=== PATIENT | male | born 1950 | race Caucasian/White ===

== ENCOUNTER 2020-12-14 11:25 | Outpatient (REF) | payer MEDICARE, SELFPAY ==
[2020-12-14 14:35] LABS: Blood Urea Nitrogen 16 mg/dL (9-16); Estimated Glomerular Filt Rate > 60
== END 2020-12-14 11:26 | disposition home or self-care (01) ==
LOC: HO.10HDL 11:25
PROVIDERS: Visit Provider Otolaryngology
DX: Z01.812 Encounter for preprocedural laboratory examination (principal); D33.3 Benign neoplasm of cranial nerves
CPT/HCPCS: 36415; 82565; 84520

== ENCOUNTER 2020-12-19 10:58 | Outpatient (REF) | payer MEDICARE, SELFPAY ==
--- NOTE | ~2020-12-19 | MR_ITS ---
MR BRAIN WITHOUT AND WITH IV CONTRAST CLINICAL INFORMATION: Concern for right-sided acoustic neuroma. COMPARISON: None available. TECHNIQUE: Multiplanar, multisequence MRI of the brain was obtained before and after the intravenous administration of 10 mL Gadavist. FINDINGS: The inner ear structures including the cochlea, vestibules, and semicircular canals exhibit preserved CSF signal intensity with no pathologic enhancement. The vestibular aqueducts are not enlarged. Cranial nerves VII and VIII complexes are normal in morphology. No enhancing CP angle/retrocochlear lesion. There is no pathologic intracranial enhancement. There is mild chronic microangiopathy. No acute infarct on diffusion-weighted imaging. No intracranial hemorrhage on the gradient series. No hydrocephalus, extra-axial surface collection, or herniation. The midline intracranial structures are normal. Cerebellar tonsils are normally positioned. Craniocervical junction is normal. Osseous marrow signal intensity remains homogeneous. No significant soft tissue abnormality is appreciated. Mucosal thickening throughout the paranasal sinuses. MR/MR head/brain wo/w con IMPRESSION: - No retrocochlear pathology. - There is mild chronic microangiopathy. - Mucosal thickening throughout the paranasal sinuses.
== END 2020-12-19 10:59 | disposition home or self-care (01) ==
LOC: HO.MRI 10:58
PROVIDERS: Visit Provider Otolaryngology
DX: H93.11 Tinnitus, right ear (principal); D33.3 Benign neoplasm of cranial nerves
CPT/HCPCS: 70553; A9585

== ENCOUNTER 2025-10-26 11:53 | Outpatient (AMB) | payer MEDICARE, SELFPAY ==
--- NOTE | 2025-10-26 11:55 | A.OFFVIS_ITS ---
Intake Visit Reasons: 6M PN Allergies amoxicillin (From Augmentin) Allergy (Unknown, Verified 10/26/25 12:00) Unknown clavulanic acid (From Augmentin) Allergy (Unknown, Verified 10/26/25 12:00) Unknown sulindac Allergy (Unknown, Verified 10/26/25 12:00) Unknown Medication List - Last Reconciled 10/26/25 by Janel Alberto CNP amlodipine 2.5 mg PO DAILY aspirin 81 mg PO DAILY cetirizine 10 mg PO DAILY clonazepam (Klonopin) 0.5 mg PO BEDTIME 90 days HPI Comments Details: He was doing okay. Some occasional numbness and tingling in feet and legs. Occasionally gets some pain in feet, but not often and is not significantly bothersome. No recent dizziness. No falls. 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 Not as active as before, but still trying to walk some. Sleep was okay. Clonazepam helps. Tried to stop clonazepam, but had increased tinnitus and restarted medication. Tinnitus is better with medication. Rare dizzy spells. Occasional shooting pains in R foot. No falls. Had L meniscus repair. 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 Sudden left sided numbness with right thalamic infarct on 02/04/2023. Hx of ringing in right ear and headaches. Had loop monitor and was told needed pacemaker which he declined. Episodes of lightheadedness and presyncope that started in 2018 with one episode of going to the floor without loss of consciousness. Occasional anxiety. Neuropathy is good, stopped gabapentin around 2014. Hx of burning and pain in legs since 2003 or earlier, diagnosed as having mild peripheral neuropathy of unknown etiology, workup for treatable neuropathy unremarkable. Hx of cervical discectomy and fusion in 1966, chronic low back pain. Nerve conduction study on 03/12/2011 showed mild bilateral carpal tunnel syndrome and mild prolonged distal latencies in the lower extremities suggestive of mild neuropathy. [facility] Medical History (Updated 10/26/25 @ 12:00 by Janel Alberto CNP) Low back pain RIA on CPAP BPH (benign prostatic hyperplasia) Hypertension Carpal tunnel syndrome Peripheral neuropathy Tinnitus Stroke Review of Systems Const Denies chills, Denies daytime sleepiness, Denies difficulty sleeping, Denies fatigue, Denies fever(s), Denies frequent falls, Denies headache(s), Denies increased appetite, Denies poor appetite, Denies snoring, Denies weakness, Denies weight gain and Denies weight loss Eyes Denies loss of vision ENT Denies vertigo, Reports dizziness, Denies headache(s), Denies neck pain and Reports tinnitus Card Denies chest pain at rest, Denies chest pain with activity, Denies syncope, Denies leg edema, Denies palpitations, Denies dyspnea and Denies dyspnea on exertion Resp Denies cough, Denies dyspnea, Denies dyspnea on exertion and Denies snoring GI Denies abdominal pain, Denies constipation, Denies heartburn, Denies diarrhea and Denies nausea Denies urinary frequency, Denies urinary incontinence and Denies urinary urgency Musc Denies abnormal gait, Denies back pain, Denies myalgias, Denies arthralgias, Denies neck pain, Reports numbness and Reports tingling Neuro Denies abnormal gait, Denies vertigo, Reports dizziness, Denies syncope, Denies frequent falls, Denies headache(s), Denies lack of coordination, Denies loss of vision, Reports memory loss, Reports numbness, Denies Other visual disturbances, Denies restless legs, Denies seizure-like activity, Reports tingling, Denies paresthesias, Denies tremor(s) and Denies weakness Psych Reports anxiety, Denies depression, Denies auditory hallucinations, Reports memory loss and Denies visual hallucinations Endo Denies fatigue and Denies palpitations Physical Exam Const Other: General Appearance:? normal, in no acute distress. Heart:? S1, S2 normal, no murmurs. Lungs:? clear anteriorly and posteriorly. Musculoskeletal:? normal. Extremities:? no edema. Psych:? alert, oriented, cognitive function intact, cooperative with exam. Neuro Other: Abnormal Neurological Findings:?none.? Mental Status: alert and oriented X 3. Normal attention, orientation, memory, and affect. Cranial Nerves: Pupils are equal, round, and reactive to light. External ocular muscles are intact. Visual huizar are full, no ptosis. Face is symmetrical, no facial weakness or droop. Facial sensations are normal. Tongue protrudes in midline. Palate elevates symmetrically. Shoulder shrugging is normal Motor Examination: Normal muscle tone, bulk and strength. No atrophy or fasciculations. No drift of the extended upper extremities. DTR 2+. Plantars are flexor. Sensory Exam: Normal light touch, temperature, pinprick, vibration, and joint- position sensations. Rhomberg sign is absent. Coordination: No ataxia. No titubation. Gait Exam: Within normal limits. Cerebellar Signs: [id number] is okay. Extrapyramidal System: No tremor, rigidity with normal facial expressions. No b radykinesia. No bradyphrenia. Normal arm swing and posture. No propulsion or retropulsion. Speech: Normal. Results Reviewed Results Reviewed: 12/19/20 MRI IMPRESSION: - No retrocochlear pathology.- There is mild chronic microangiopathy. - Mucosal thickening throughout the paranasal sinuses. Assessment & Plan Assessment & Plan (1) History of stroke: Code(s): Z86.73 - Personal history of transient ischemic attack (TIA), and cerebral infarction without residual deficits Category: Medical Plan: Continue low dose aspirin, control blood pressure. (2) Dizziness: Code(s): R42 - Dizziness and giddiness Category: Medical Plan: Continue clonazepam 0.5mg 1 tablet at bedtime #30 for 30 days (3) Peripheral neuropathy: Code(s): G62.9 - Polyneuropathy, unspecified Category: Medical Qualifiers: Peripheral neuropathy type: polyneuropathy, unspecified Qualified Code(s): G62.9 - Polyneuropathy, unspecified Plan: No significant pain at this time and medication was not needed - he has tried gabapentin in the past. Stay physically active. Follow up in 6 months or sooner as needed. Coding Level of Care Code Est Pt Level 4 (47346) Diagnoses History of stroke Z86.73 Dizziness R42 Peripheral polyneuropathy G62.9 Peripheral neuropathy type: polyneuropathy, unspecified
--- OUTSIDE RECORDS SUMMARY | 2025-10-26 15:48 | XMS_ITS | Encounter Summary ---
Author Organization [facility] Address [address] [place] [address] Care Team Providers Care Magazine Repairer Name Role Phone Bradly Dumont MD Primary Care Provider [phone] Encounter Details Date Type Department Care Team (Late st Contact Info) Description 10/24/2025 Results Follow-Up Adult Medicine [address] [phone] Lindsey Shepard PA [address] [place] [address] Social History Tobacco Use Types Packs/Day Years Used Date Smoking Tobacco: Former Cigarettes 0 Q uit: 10/10/1994 Smokeless Tobacco: Never Alcohol Use Standard Drinks/Week Comments No 0 (1 standard drink = 0.6 oz pur e alcohol) Housing Instability Answer Date Recorde d Are you worried that in the next 2 months you may not have stable housing? No 05/15/2025 Food Access & Nutrition Answer Date Rec orded Do you have access to a vari ety of food including fruits and vegetables? Yes 05/15/2025 Access to Healthcare Answer Date Record ed Within the last 3 months, ho w many times did you visit the emergency department for your medical care? 0 05/15/2025 Health Literacy Answer Date Recorded How often do you need to hav e someone help you when you read instructions, pamphlets, or other written material from your doctor or pharmacy? Never 05/15/2025 Caregiver: How often do you need to have someone help you when you read instructions, pamphlets, or other written material from your doctor or pharmacy? Not on file 05/15/2025 Financial Risk Answer Date Recorded How hard is it for you to pa y for the very basics like food, housing, medical care, and air conditioning / heating? Not very hard 05/15/2025 Transportation Answer Date Recorded Has the lack of transportati on kept you from meetings, work, or from getting things needed for daily living? No 05/15/2025 Has the lack of transportati on kept you from medical appointments or from getting medications? Not on file 05/15/2025 Social Isolation Answer Date Recorded How often do you feel lonely or isolated from those around you? Sometimes 05/15/2025 Food Risk Answer Date Recorded Within the past 12 months we worried whether our food would run out before we got money to buy more. Never true 05/15/2025 Within the past 12 months th e food we bought just didn't last and we didn't have money to get more. Never true 05/15/2025 Dependent Care Answer Date Recorded Do you need help finding or paying for care for your loved ones. For example, child care cook or elderly care for an older adult? No 05/15/2025 Education Answer Date Recorded Do you think completing more education or training, like finishing a GED, going to college, or learning a trade, would be helpful for you? No 05/15/2025 Employment and Income Answer Date Recor ded During the last four weeks, have you been actively looking for work? No 05/15/2025 Living Situation Answer Date Recorded What is your living situation? Unrecognized valu e 05/15/2025 Sex and Gender Information Value Date Recorded Sex Assigned at Not on file Legal Sex Male 8:11 AM EST Gender Identity Not on file Sexual Orientation Not on file documented as of this encounter Plan of Treatment Upcoming Encounters Date Type Department Care Team (Late st Contact Info) Description 10/27/2025 3:00 PM EST Office Visit Orthopedic Surgery - [place] [address] [phone] Tony Madera, DPM [address] [phone] 04/20/2026 11:00 AM EDT Office Visit Adult Medicine [address] [phone] Bradly Dumont MD [address] [place] [address] documented as of this encounter Visit Diagnoses Not on filedocumented in this encounter Additional Health Concerns Assessment Noted Time PHQ-9 Depression Total Score: 0 10/19/20 25 8:30 AM EST documented as of this encounter Care Teams Magazine Repairer Relationship Specialty Start Date End Date Bradly Dumont MD [address] [place] [address] PCP - General Internal Medicine 09/20/24 documented as of this encounter
--- OUTSIDE RECORDS SUMMARY | 2025-10-26 15:48 | XMS_ITS ---
Author Name [facility] Organization Unknown Care Team Organization Name Specialty Phone Email Start Date End Da te [facility]CO 06/29/2025 [facility] KOKO COLINDRES Primary Care 10/22/2023 [facility] Fidelia Moreno Primary Care 07/17/202306/28 [facility] Kelli Ahumada Primary Care 04/18/202306/10
--- OUTSIDE RECORDS SUMMARY | 2025-10-26 15:48 | XMS_ITS | Clinical Summary ---
Author Organization [employer] Address [address] [facility] [address] [place] [address] Care Team Providers Care Resource Specialist Name Role Phone Unavailable Primary Care Provider Unavailabl e Immunizations Immunization Administration Dates Next Due Influenza, seasonal, injectable, preservative fr ee 08/27/2024 Pfizer Covid-19 Vaccine 12+ 08/27/2024 Social History Tobacco Use Types Packs/Day Years Used Date Smoking Tobacco: Never Assessed Sex and Gender Information Value Date Recorded Sex Assigned at Male 08/27/2024 3:58 PM EDT Legal Sex Male 3:56 PM EDT Gender Identity Male 08/27/2024 3:58 PM EDT Sexual Orientation Straight 08/27/2024 3: 58 PM EDT Plan of Treatment Health Maintenance Due Date Last Done Comments CT Colonography 1951 Colonoscopy 1951 Colorectal Cancer Screening 1951 Depression Screening 1951 FIT DNA/Cologuard 1951 FIT 1951 FOBT 1951 Lipid Panel 1951 SDOH Screening 1951 Sigmoidoscopy 1951 Alcohol/Substance Use Screening 1963 Tobacco Screening 1963 Hepatitis C Screening 1969 DTaP/Tdap/Td Vaccines (1 - Tdap) 1970 Pneumococcal Vaccine: 50+ Ye ars (1 of 1 - PCV) 2001 Zoster Vaccines (1 of 2) 2001 COVID-19 Vaccine (2 - 2024-2 6 season) 2025 08/27/2024 Influenza Vaccine (#1) 2025 08/27/2024 RSV Patients and Pa tients Aged 60 years or older (1 - 1-dose 75+ series) 2026 HIB Vaccines Aged Out No longer eligi ble based on patient's age to complete this topic HPV Vaccines Aged Out No longer eligi ble based on patient's age to complete this topic Hepatitis A Vaccines Aged Out No long er eligible based on patient's age to complete this topic Hepatitis B Vaccines Aged Out No long er eligible based on patient's age to complete this topic IPV Vaccines Aged Out No longer eligi ble based on patient's age to complete this topic Meningococcal B Vaccine Aged Out No l onger eligible based on patient's age to complete this topic Meningococcal Vaccine Aged Out No carmen william eligible based on patient's age to complete this topic RSV under 20 months Aged Out No longe r eligible based on patient's age to complete this topic Rotavirus Vaccines Aged Out No longer eligible based on patient's age to complete this topic Insurance [place] [address] [place] [phone] [facility] [employer] MEDICARE SUPPLEMENT
--- OUTSIDE RECORDS SUMMARY | 2025-10-26 15:48 | XMS_ITS | Encounter Summary ---
Author Organization [facility] Address [address] [place] [address] Care Team Providers Care Director Of Content And Programming Name Role Phone Bradly Dumont MD Primary Care Provider [phone] Encounter Details Date Type Department Care Team (Late st Contact Info) Description 01/06/2025 Lab Requisition [facility] - Main Lab [address] [facility] [place] [phone] Brandon Ortiz MD [address] [facility] [address] [place] [address] Hydrocele, unspecified Social History Tobacco Use Types Packs/Day Years Used Date Smoking Tobacco: Former Cigarettes 0 Q uit: 10/10/1994 Smokeless Tobacco: Never Alcohol Use Standard Drinks/Week Comments No 0 (1 standard drink = 0.6 oz pur e alcohol) Sex and Gender Information Value Date Recorded Sex Assigned at Not on file Legal Sex Male 8:11 AM EST Gender Identity Not on file Sexual Orientation Not on file documented as of this encounter Plan of Treatment Upcoming Encounters Date Type Department Care Team (Late st Contact Info) Description 10/27/2025 3:00 PM EST Office Visit Orthopedic Surgery - [place] [address] [phone] Tony Madera DPKurt [address] [phone] 04/20/2026 11:00 AM EDT Office Visit Adult Medicine [place] - [place] [address] [place], [place] [phone] Bradly Dumont MD [address] [place], [place] documented as of this encounter Procedures Procedure Name Priority Date/Time Associated Diagnosis Comments TISSUE EXAM Routine 01/05/2025 Hydrocele, unspecified documented in this encounter Results * Tissue Exam (01/05/2025) Final Diagnosis Hydrocele Sac, Left-hydrocelecto my: -Hydrocele Sac 01/07/2025 11:32 AM [facility] at 1132 EST Clinical Information Hydrocele unspecified N43.3 01/07/2025 11:32 AM [facility] Gross Description A. Hydrocele Sac, Left: Labeled left hydrocele sac . Received in formalin are two irregular pink-white peripherally cauterized fibromembranous tissue fragments, measuring 2.2 x 1.1 x 0.7 cm and 3.2 x 0.8 x 0.2 cm. No masses or lesions are appreciated. A bilingual sales representative section of each is submitted in one cassette, two pieces. SUSAN 01/07/2025 11:32 AM [facility] Disclaimer Unless otherwise specified, all tissue is 10% NB formalin fixed and paraffin embedded. 01/07/2025 11:32 AM [facility] Tissue Hydrocele / Unknown 01/05/2025 01/06/2025 1:44 PM EST us Brandon Ortiz MD LAB PATHOLOGY ORDERABLES Fi nal Result [facility] [address] [place] [address], documented in this encounter Visit Diagnoses Diagnosis Hydrocele, unspecified documented in this encounter Care Teams Director Of Content And Programming Relationship Specialty Start Date End Date Bradly Dumont MD [address] [place] [phone] PCP - General Internal Medicine 09/20/24 documented as of this encounter
--- OUTSIDE RECORDS SUMMARY | 2025-10-26 15:48 | XMS_ITS | Clinical Summary ---
Author Organization Patient Business Ser [facility] Address [address] [place] [address] Care Team Providers Care Cat Scanner Operator Name Role Phone Bradly Dumont MD Primary Care Provider [phone] Allergies Active Allergy Reactions Criticality Noted Date Comments Amoxicillin-Pot Clavulanate 08/05/20 16 Facial swelling, trouble breathing Fluticasone Propionate 10/05/2024 Sulindac Hives 05/21/2007 gi distress Medications aspirin 81 mg EC tablet Take 1 tablet (81 mg total) by mouth 1 (one) time each day. 3 Active clonazePAM (KlonoPIN) 0.5 mg tablet Take 1 tablet (0.5 mg total) by mouth at bedtime. at bedtime for 30 days Active fluticasone propionate (FLONASE) 50 mcg/actuation nasal spray SPRAY 2 SPRAYS INTO EACH NOSTRIL EVERY DAY 48 mL 1 4 Active amLODIPine (NORVASC) 2.5 mg tablet TAKE 1 TABLET BY MOUTH EVERY DAY 90 tablet 1 5 Active cetirizine (ZyrTEC) 10 mg tablet Take 1 tablet (10 mg total) by mouth 1 (one) time each day. 90 each 1 5 Active permethrin (ELIMITE) 5 % cream Apply to skin from hairline to toes and wash off 8-10 hours later. 60 g 5 026 Active permethrin (ELIMITE) 5 % cream Apply to lower legs and wash off 8-10 hours later. 60 g 5 025 Discontinued Active Problems Problem Noted Date Diagnosed Date Ascending aortic aneurysm 10/16/2023 Chronic hepatitis C without hepatic coma 020 Overview (10/05/2024): Chronic Hepatitis C, Genotype 1B. Found to be pos during blood donation in 2008. Treatment started 02/21/2022 with Harvoni 90/400 mg tabs. Take 1 tab daily for 8 weeks. Last dose 04/18/2022. SVR Achieved 06/23/2023 Viral load undetectable as of 04/18/22 Prediabetes 09/08/2019 Obesity (BMI 30.0-34.9) 08/15/2018 Essential hypertension 03/17/2018 Obstructive sleep apnea 08/19/2014 Overview (10/05/2024): 06/05/2019 to 09/02/2019. CPAP@ 17. 91% compliant with using the machine for >4 hours/day. Average use is 5.3 hours a night with AHI 0.2. Large mask leak. Last Assessment & Plan: 74-year-old man with moderate obstructive sleep apnea Compliance report is 94% more than 4 hours Patient meets DME requirements Continue using the CPAP Supply letter has been printed for supplies. Return to clinic in 1 year RLS (restless legs syndrome) 05/18/2014 Allergic rhinitis 09/20/2009 Diverticulitis 05/30/2009 Overview (10/05/2024): Mar, 2009. Hydrocele 08/23/2008 Overview (10/05/2024): Aspirated by Dr. King, left side, 07/29/2008 Neck pain 08/23/2008 Overview (10/05/2024): Cervical fusion age 17 Strabismus 08/23/2008 Overview (10/05/2024): Surgery as a child Hypertrophy of prostate without urinary obstruct ion 04/24/2006 Encounters Date Type Department Care Team Description 10/24/2025 Results Follow-Up [address] [phone] Lindsey Shepard PA 10/19/2025 9:10 AM EST Lab Draw Station [address] Screening for lipid disorders; Prediabetes; Essential hypertension 10/19/2025 8:30 AM EST Office Visit Adult [address] [phone] Lindsey Shepard PA Prediabetes (Primary Dx); Essential hypertension; Screening for lipid disorders 10/18/2025 Nurse Triage Adult [address] [phone] Carol Gonzáles MA from Last 3 Months Immunizations Immunization Administration Dates Next Due Hepatitis A Adult (Havrix; V aqta) 19yo and older 09/19/2022,03/21/2022 Hepatitis B (Pzfgrbv-J-Scowc , Recombivax HB-Adult) 19yo and older 04/10/1998,12/11/1997,11/10/1997 Influenza trivalent, 0.5mL, preservative free (Fluarix; FluLaval; Fluzone) ages 6mo and older (Afluria) 3 years and older 08/27/2024 PPD Test 08/31/2008 Pneumococcal conjugate 13 va lent (Prevnar 13, PCV13) 2mo and older 07/26/2019 Pneumococcal polysaccharide 23 valent (Pneumovax 23) 2yo and older 08/10/2020 RSV, bivalent, protein subun it RSVpreF, 0.5mL, Preservative Free (ABRYSVO) 50yo and older or 32 through 36 wks of 09/05/2023 Td Tetanus diptheria (Tdvax) 7yo and older 09/02 Tdap Tetanus diptheria acell ular pertussis (Boostrix; Adacel) 7yo and older 06/16/2018,04/27/2014,04/27/2014 Zoster Live 05/04/2014 Zoster recombinant (Shingrix ) 19yo and older 05/16/2025,08/16/2022 Surgical History Surgery Date Site/Laterality Comments APPENDECTOMY Age 9 NECK SURGERY : fusion at age 17 EYE SURGERY : Strabismus age 9 KNEE SURGERY 2013 Right Meniscus surgery OTHER SURGICAL HISTORY 2013 Biceps tendon repair COLONOSCOPY 05/30/2009 diverticulosis COLONOSCOPY 2019 : Muslu, no polyps. Medical History Medical History Date Comments Hypertrophy of prostate with out urinary obstruction and other lower urinary tract symptoms (LUTS) Strabismus 08/23/2008 Surgery as a chi ld Hydrocele 08/23/[address] King, left side, 07/29/2008 Neck pain 08/23/2008 Cervical fusion age 17 Diverticulitis 05/30/2009 Special screening for malign ant neoplasms, colon 05/30/2009 colon Allergic rhinitis 09/20/2009 Family History Medical History Relation Name Comments Lung cancer Father Thyroid disease Mother Colon cancer Neg Hx Relation Name Status Comments Father (Age 70) Mother (Age 90) Social History Tobacco Use Types Packs/Day Years Used Date Smoking Tobacco: Former Cigarettes 0 Q uit: 10/10/1994 Smokeless Tobacco: Never Tobacco Cessation:Counseling Given: Not Answered Alcohol Use Standard Drinks/Week Comments No 0 [...] for your loved ones. For example, child psychologist or elderly care for an older adult? [...] on file Sexual Orientation Not on file Last Filed Vital Signs Vital Sign Reading Time Taken Comments Blood Pressure 136/76 10/19/2025 8:29 AM EST Pulse 66 10/19/2025 8:29 AM EST Temperature 36.6 C (97.9 F) 10/19/2025 8:29 AM EST Respiratory Rate 14 06/21/2025 3:16 PM EDT Oxygen Saturation 98% 10/19/2025 8:29 AM EST Inhaled Oxygen Concentration - - Weight 106 kg (233 lb 14.4 oz) 10/19/2025 8:29 A M EST Height 177.8 cm (5' 10 ) 10/19/2025 8:29 AM EST Body Mass Index 33.56 10/19/2025 8:29 AM EST Plan of Treatment Upcoming Encounters Date Type Department Care Team (Late st Contact Info) Description 10/27/2025 3:00 PM EST Office Visit Orthopedic Surgery - [place] [address] [facility] [address] [place] [phone] Tony Madera, DPM [address] [facility] [address] [place] [phone] 04/20/2026 11:00 AM EDT Office Visit Adult Medicine [facility] [address] [place] [phone] Bradly Dumont MD [address] [place] [phone] Health Maintenance Due Date Last Done Comments Drug Screen 1950 Non-Opioid Controlled Substance Agreement 1950 Abdominal Aortic Aneurysm (AAA) Screen 09/20/2022 Hepatitis C Screening 09/20/2022 Medicare Annual Wellness Visit 09/20/2022 COVID-19 Vaccine ( season) 2025 08/27/2024, 08/09/2023, 08/13/2022, Additional history exists Social Influencers of Health Screening 05/15/2026 05/15/2025, 07/07/2024 Falls Risk Assessment 06/21/2026 06/21/2025 Hypertension/CHF/CAD Annual BMP Blood Test 10/19/2026 10/19/2025, 01/28/2025, 10/22/2024, Additional history exists DTaP,Tdap,and Td Vaccines (5 - Td or Tdap) 06/16/2028 06/16/2018, 04/27/2014, 04/27/2014, Additional history exists Colorectal Cancer Screening: Colonoscopy 10/13/2029 10/13/2019 Cholesterol Screening (Lipid Panel) 10/19/2030 10/19/2025, 01/28/2025, 06/29/2024 Hepatitis B Vaccines Completed 04/10/1998, 12/11/1997, 11/10/1997 Pneumococcal Vaccine: 50+ Years Completed 08/10/2020, 07/26/2019 Hepatitis A Vaccines Aged Out 09/19/2022, 03/21/20 22 No longer eligible based on patient's age to complete this topic RSV Immunization Adult Patients Completed 09/05/2023 Zoster Vaccines Completed 05/16/2025, 05/2022, 05/04/2014 Influenza Vaccine Completed 07/25/2025, 08/27/2024 Depression Screening Completed 10/19/2025 Pediatric Cholesterol Screening (Lipid Panel) Completed 10/19/2025, 01/28/2025, 06/29/2024 HIB Vaccines Aged Out No longer eligi ble based on patient's age to complete this topic HPV Vaccines Aged Out No longer eligi ble based on patient's age to complete this topic IPV Vaccines Aged Out No longer eligi ble based on patient's age to complete this topic MMR Vaccines Aged Out No longer eligi ble based on patient's age to complete this topic Meningococcal ACWY Vaccine Aged Out N o longer eligible based on patient's age to complete this topic Meningococcal B Vaccine Aged Out No l onger eligible based on patient's age to complete this topic RSV Immunization Patients Under 20 months Aged Out No longer eligible based on patient's age to complete this topic Varicella Vaccines Aged Out No longer eligible based on patient's age to complete this topic Procedures Procedure Name Priority Date/Time Associated Diagnosis Comments BASIC METABOLIC PANEL Routine 10/19/2025 9:14 AM EST Prediabetes Essential hypertension HEMOGLOBIN A1C Routine 10/19/2025 9:14 AM EST Prediabetes LIPID PANEL WITH REFLEX TO DIRECT LDL Routine 10/19/2025 9:14 AM EST Screening for lipid disorders HM COLONOSCOPY Routine 10/13/2019 from Last 3 Months or Most Recently Relevant to Health Maintenance Results * (ABNORMAL) Lipid panel with reflex to direct LDL (10/19/2025 9:14 AM EST) Cholesterol 171 0 - 200 mg/dL 10/19/2025 1:14 PM EST [facility] Triglycerides 65 0 - 150 mg/dL 10/19/2025 1:14 PM EST [facility] HDL 54 >=40 mg/dL 10/19/2025 1:14 PM EST [facility] LDL Calculated 104(H) 0 - 100 mg/dL 10/19/2025 1:14 PM [facility] Comment:Estimated LDL is raad culated using the Friedewald equation: Total cholesterol - HDL cholesterol - (Triglycerides/5) VLDL Cholesterol Raad 13 mg/dL 10/19/2025 1:14 PM [facility] Non HDL Chol. (LDL+VLDL) 117 <145 mg/dL 10/19/2025 1:14 PM [facility] Chol/HDL Ratio 3.2 0.0 - 4.4 10/19/2025 1:14 PM [facility] Blood Venous blood specimen / Unknown Venipuncture / Unknown 10/19/2025 9:14 AM EST 10/19/2025 9:14 AM EST Lindsey LOPEZ LAB BLOOD ORDERABLES Fi nal Result Performing Organization Address City/[facility]/ZIP Co de Phone Number [facility] [address] [place] [address], [place] [phone] * Hemoglobin A1c (10/19/2025 9:14 AM EST) [facility] Hemoglobin A1C 5.8 <6.5 % LAB CHEMISTRY METHOD 10/21/2025 11:50 AM [facility] Mean Bld Glu Estim. 120 mg/dL LAB CHEMISTRY METHOD 10/21/2025 11:50 AM [facility] Blood Venous blood specimen / Unknown Venipuncture / Unknown 10/19/2025 9:14 AM EST 10/19/2025 9:14 AM EST Lindsey LOPEZ LAB BLOOD ORDERABLES Fi nal Result Performing Organization Address City/[facility]/ZIP Co de Phone Number [facility] [address] [place] [address], [place] [phone] * Basic metabolic panel (10/19/2025 9:14 AM EST) Sodium 143 133 - 145 mmol/L 10/19/2025 1:12 PM [facility] Potassium 4.3 3.5 - 5.5 mmol/L 10/19/2025 1:12 PM [facility] Chloride 105 96 - 110 mmol/L 10/19/2025 1:12 PM [facility] CO2 31 21 - 32 mmol/L 10/19/2025 1:12 PM [facility] Anion Gap 7 3 - 11 10/19/2025 1:12 PM [facility] Glucose 86 70 - 100 mg/dL 10/19/2025 1:12 PM [facility] BUN 16 5 - 25 mg/dL 10/19/2025 1:12 PM [facility] Creatinine 1.17 0.70 - 1.30 mg/dL 10/19/2025 1:12 PM [facility] eGFR 65 >=60 mL/min/1. 73m2 10/19/2025 1:12 PM [facility] Comment:Calculation based on the Chronic Kidney Disease Epidemiology Collaboration (CKD-EPI) equation refit without adjustment for race. BUN/Creatinine Ratio 13.7 10/19/2025 1:12 PM [facility] Calcium 8.9 8.5 - 10.5 mg/dL 10/19/2025 1:12 PM [facility] Blood Venous blood specimen / Unknown Venipuncture / Unknown 10/19/2025 9:14 AM EST 10/19/2025 9:14 AM EST us Lindsey LOPEZ LAB BLOOD ORDERABLES Fi nal Result [facility] [address] [place] [address], * Hm Colonoscopy (10/13/2019) Colonoscopy abstract [facility]sr Anatomical Region Laterality Modality Other Historical Provider HEALTH MAINTENANCE Final Result from Last 3 Months or Most Recently Relevant to Health Maintenance Insurance MEDICARE [facility] Care Teams Cat Scanner Operator Relationship Specialty Start Date End Date Bradly Dumont MD [address] [place] [address] [place] [phone] PCP - General Internal Medicine 09/20/24
== END 2025-10-26 12:30 | disposition home or self-care (01) ==
LOC: HO.HSM 11:53
PROVIDERS: PCP Internal Medicine; Referring Provider Internal Medicine; Visit Provider Registered Nurse
DX: Z86.73 Personal history of transient ischemic attack (TIA), and cerebral infarction without residual deficits (principal); R42 Dizziness and giddiness; G62.9 Polyneuropathy, unspecified
CPT/HCPCS: 99214

== ENCOUNTER → 2025-10-26 11:53 | Outpatient (BNVA) | payer MEDICARE, SELFPAY | PROVIDERS: PCP Internal Medicine; Referring Provider Internal Medicine; Visit Provider Registered Nurse | DX: R42 Dizziness and giddiness (principal); G62.9 Polyneuropathy, unspecified; Z86.73 Personal history of transient ischemic attack (TIA), and cerebral infarction without residual deficits | CPT/HCPCS: 99212 ==